=== PATIENT | female | born 1985 | race Caucasian/White ===

== ENCOUNTER 2017-12-31 08:13 | Emergency (ER) | payer MEDICAID ==
--- NOTE | 2017-12-31 08:32 | EDM.PDOC ---
ED HPI GENERAL MEDICAL PROBLEM - General Chief Complaint: Abdominal Pain Stated Complaint: BACK/ABDOMINAL PAIN Time Seen by Provider: 12/31/17 08:26 Source of Information: Reports: Patient History Limitations: Reports: No Limitations - History of Present Illness INITIAL COMMENTS - FREE TEXT/NARRATIVE: 32-year-old female presents the ED with diffuse left sided low back pain that seemed to come on abruptly after supper last evening. No position is comfortable. She states she spent a good portion of the night on her knees with her head lying on the couch.. Also associated feeling of need to void but unable to do so. She denies any pre-existing dysuria urgency or frequency. She told the nurse that she was having intermittent chills and fever but she does not have a fever at this time. Not eaten since yesterday. She has a family history of kidney stones but she was not moving the family had stones. She reports that her bowel function is quite poor in terms that she has very irregular hard constipated stools infrequently. She reports diffuse lower abdominal discomfort for the better part of a year. She reports she's had previous tubal ligation is her only abdominal surgery. Has never had similar type pain. No previous back surgery or injuries. Onset: Sudden Onset Date: 12/30/17 (Pain became much worse left mid lower back after supper last night. She reports she has chronic low back pain at any rate. This is the worst it's ever been.) Duration: Hour(s): Location: Reports: Back Quality: Reports: Ache, Sharp, Stabbing (Pain is constant with a colicky component.), Other Severity: Severe Improves with: Reports: None (No position is comfortable.) Worsens with: Reports: None Context: Denies: Activity, Exercise, Lifting, Sick Contact, Trauma, Other Associated Symptoms: Reports: Loss of Appetite, Malaise, Nausea/Vomiting. Denies: No Other Symptoms, Confusion, Chest Pain, Cough, cough w sputum, Diaphoresis, Fever/Chills, Headaches, Rash, Seizure, Shortness of Breath, Syncope, Weakness (Nausea without vomiting) Treatments MANAGER OF ORGANIZATIONAL DEVELOPMENT: Reports: Other (see below) (None.) Lower Abdominal Pain Score (Numeric/FACES): 7 - Related Data Allergies Allergy/AdvReac Type Severity Reaction Status Date / Time aspirin Allergy Hives Verified 12/31/17 08:20 azithromycin [From Zithromax] Allergy Vomiting Verified 12/31/17 08:20 nalbuphine [From Nubain] Allergy Headache Verified 12/31/17 08:20 Home Meds: Home Meds oxyCODONE HCl/Acetaminophen [Percocet 5-325 mg Tablet] 1 - 2 each PO Q4H PRN # 20 tablet 12/31/17 [Rx] predniSONE [Deltasone] 20 mg PO ASDIRECTED #15 tablet 12/31/17 [Rx] Past Medical History Gastrointestinal History: Reports: Chronic Constipation Musculoskeletal History: Reports: Other (See Below) Other Musculoskeletal History: septic arthritis; 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 Denies: Fever, Chills, Malaise, Weakness, Weight Loss HEENT: Reports: No Symptoms Respiratory: Reports: No Symptoms Cardiovascular: Reports: No Symptoms Endocrine: Reports: No Symptoms GI/Abdominal: Reports: Abdominal Pain (Chronic lower abdominal pain she reports for over a year and a half.), Constipation, Decreased Appetite : Reports: Other (Is a feeling of need to void but is often unable to do so.) Musculoskeletal: Reports: Back Pain Skin: Reports: No Symptoms (Diffuse left-sided low back pain but has chronic low back pain. Current pain is radiating down into her left buttock and posterior leg.) Neurological: Reports: No Symptoms Psychiatric: Reports: No Symptoms Hematologic/Lymphatic: Reports: No Symptoms Immunologic: Reports: No Symptoms ED EXAM, GI/ABD - Physical Exam Exam: See Below Exam Limited By: No Limitations General Appearance: Alert, WD/WN, Moderate Distress (No position is couple. She was examined in the standing position beside the bed.) Eyes: Bilateral: Normal Appearance (No jaundice.) Respiratory/Chest: No Respiratory Distress, Lungs Clear, Normal Breath Sounds, No Accessory Muscle Use Cardiovascular: Normal Peripheral Pulses, Regular Rate, Rhythm, No Edema, No Gallop, No Murmur, No Rub GI/Abdominal Exam: Normal Bowel Sounds, Soft, Non-Tender, No Organomegaly, No Abnormal Bruit, No Mass, Pelvis Stable Back Exam: Normal Inspection, Decreased Range of Motion, Muscle Spasm (Mild paraspinal muscle spasm on the left side with facet joint tenderness from lumbar 1 to L5 on the left side.). No: Full Range of Motion Extremities: Normal Inspection, Normal Range of Motion, Non-Tender, No Pedal Edema Neurological: Alert, Oriented, CN II-XII Intact, Normal Cognition Psychiatric: Normal Affect, Normal Mood Skin Exam: Warm, Dry, Intact, Normal Color, No Rash Course - Vital Signs Last Recorded V/S: Last Vital Signs Temp 36.4 C 12/31/17 08:21 Pulse 96 12/31/17 08:21 Resp BP 139/102 H 12/31/17 08:21 Pulse Ox 97 12/31/17 08:21 - Orders/Labs/Meds Orders: Active Orders 24 hr Category Date Time Status URINALYSIS W/MICROSCOPIC [UA W/MICROSCOPIC] [URIN] Stat Lab 12/31/17 08:40 Ordered Dextrose 5%-0.9% NaCl [Dextrose 5%-Normal Saline] 1,000 Med 12/31/17 08:45 Active ml IV ASDIRECTED Medication Orders Dextrose/Sodium Chloride (Dextrose 5%-Normal Saline) 1,000 mls @ 150 mls/hr IV ASDIRECTED ADAMS Last Admin: 12/31/17 08:51 Dose: 150 mls/hr Labs: Laboratory Tests 12/31/17 12/31/17 12/31/17 Range/Units 08:23 08:23 08:40 WBC 6.18 (3.98-10.04) K/mm3 RBC 4.92 (3.98-5.22) M/mm3 Hgb 14.1 (11.2-15.7) gm/L Hct 43.1 (34.1-44.9) % MCV 87.6 (79.4-94.8) fl MCH 28.7 (25.6-32.2) pg MCHC 32.7 (32.2-35.5) g/dl RDW Std Deviation 45.0 (36.4-46.3) fL Plt Count 273 (182-369) K/mm3 MPV 11.7 (9.4-12.3) fl Neutrophils % (Manual) 33 L (40-60) % Band Neutrophils % 1 (0-10) % Lymphocytes % (Manual) 61 H (20-40) % Atypical Lymphs % 0 % Monocytes % (Manual) 4 (2-10) % Eosinophils % (Manual) 1 (0.7-5.8) % Basophils % (Manual) 0 L (0.1-1.2) Platelet Estimate Adequate RBC Morph Comment Normal Sodium 139 (136-145) mEq/L Potassium 4.5 (3.5-5.1) mEq/L Chloride 106 (98-107) mEq/L Carbon Dioxide 25 (21-32) mEq/L Anion Gap 12.5 (5-15) BUN 10 (7-18) mg/dL Creatinine 1.0 (0.55-1.02) mg/dL Est Cr Clr Drug Dosing 74.91 mL/min Estimated GFR (MDRD) > 60 (>60) mL/min BUN/Creatinine Ratio 10.0 L (14-18) Glucose 97 (74-106) mg/dL Calcium 9.3 (8.5-10.1) mg/dL Total Bilirubin 0.4 (0.2-1.0) mg/dL AST 19 (15-37) U/L ALT 35 (14-59) U/L Alkaline Phosphatase 104 (46-116) U/L C-Reactive Protein 0.3 (<1.0) mg/dL Total Protein 8.2 (6.4-8.2) g/dl Albumin 4.2 (3.4-5.0) g/dl Globulin 4.0 gm/dL Albumin/Globulin Ratio 1.1 (1-2) Urine Color Yellow (Yellow) Urine Appearance Clear (Clear) Urine pH 6.0 (5.0-8.0) Ur Specific Stebbins > or = 1.030 (1.005-1.030) Urine Protein Trace H (Negative) Urine Glucose (UA) Negative (Negative) Urine Ketones Negative (Negative) Urine Occult Blood Negative (Negative) Urine Nitrite Negative (Negative) Urine Bilirubin Negative (Negative) Urine Urobilinogen 0.2 (0.2-1.0) Ur Leukocyte Esterase Negative (Negative) Urine RBC Not seen (0-5) /hpf Urine WBC 0-5 (0-5) /hpf Ur Epithelial Cells 0-5 (0-5) /hpf Urine Bacteria Few (FEW) /hpf Urine Mucus Few (FEW) /hpf Meds: Medications Generic Name Dose Route Start Last Admin Trade Name Fregrace PRN Reason Stop Dose Admin Dextrose/Sodium Chloride 1,000 mls @ 150 mls/hr 12/31/17 08:45 12/31/17 08:51 Dextrose 5%-Normal Saline IV 150 mls/hr ASDIRECTED ADAMS Administration Discontinued Medications Generic Name Dose Route Start Last Admin Trade Name Freq PRN Reason Stop Dose Admin Hydromorphone HCl 1 mg 12/31/17 08:33 12/31/17 08:49 Dilaudid IVPUSH 12/31/17 08:34 1 mg ONETIME ONE Administration Magnesium Citrate 240 ml 12/31/17 10:03 12/31/17 10:12 Citrate Of Magnesia PO 12/31/17 10:04 240 ml ONETIME ONE Administration Metoclopramide HCl 7.5 mg 12/31/17 08:33 12/31/17 08:48 Reglan IVPUSH 12/31/17 08:34 7.5 mg ONETIME ONE Administration - Radiology Interpretation Free Text/Narrative:: 32-year-old female presents to the ED with diffuse left lower back pain. She states it became suddenly worse last evening after supper. No falls or recent injuries. States the pain is constant with a strong colicky component with associated feeling of need to void but unable to do so at times. Noticed the urine is darker jennifer in color. No jez blood per urethra. She has never experienced this type of pain before although she has chronic diffuse low back pain. She reports pain does seem to radiate into her left buttock and posterior thigh at times. Associated nausea without any vomiting. And up all night because of the severity of the pain. She's been primarily kneeling on the floor with her head on the couch. Her history is somewhat suggestive of renal colic although not completely so. She is minimal spur paraspinal muscle tenderness on examination of her left lower back. Benign abdominal examination. Patient has had a previous tubal ligation. Workup will be centered around possible left renal colic. Plan IV: D5 normal saline at 150 mils per hour. Given Dilaudid 1 mg IV for pain relief and Reglan 7.5 mg IV for nausea relief. Skin the abdomen and pelvis was performed without any contrast. Urinalysis will be performed when one becomes available. - Re-Assessments/Exams Free Text/Narrative Re-Assessment/Exam: 12/31/17 09:18 CT of the abdomen and pelvis has been completed. Liver spleen and gallbladder. Normal pancreas appears normal. Kidneys both appear normal with no signs of stones within the kidney tissues and no obstructing uropathy. There is a large amount of stool throughout the entire colon. No evidence of diverticulitis. No mesenteric adenitis noted. Able to visualize most of the lower thoracic spine and lumbar spine and no abnormality is appreciated as far as degenerative disc disease fractures or abnormalities of the vertebra. Will await lab reports and urinalysis. 12/31/17 09:57 Labs are back. White count is normal at 6.18 differential pending hemoglobin 14.1 with hematocrit of 43.1. Count normal 273,000. Chemistry is completely normal. CRP was less than 0.3. Renal. Urinalysis shows no signs of infection. 12/31/17 10:03 patient's pain is markedly improved after IV analgesia. Plan most her pain does appear to be coming from her lower back. She does take Advil and or Motrin without issue. She's allergic to aspirin with develop hives as a teenager. Therefore she will continue Motrin 600 mg every 6 hours needed to reduce pain and inflammation. Percocet tabs 5/325 one or 2 every 4-6 hours for pain relief for the next few days until inflammation settles down. We'll place on a short course of prednisone 20 mg twice a day for 5 days then once in the morning only for another 5 days to further reduce inflammation in her back. Regards to her constipation issues suggest Citroma 8 ounces by mouth next to 6 ounces of juice of choice taken once. Then she is to stay on her MiraLAX powder 17 g or 1 scoop daily to keep the bowels much more regular. I believe this cause of her colicky type abdominal pain. She will follow-up with her personal care provider if any further problems occur. Departure - Departure Time of Disposition: 10:06 Disposition: Home, Self-Care 01 Condition: Fair Clinical Impression: Acute exacerbation of chronic low back pain, Constipation by delayed colonic transit - Discharge Information Prescriptions: oxyCODONE HCl/Acetaminophen [Percocet 5-325 mg Tablet] 1 - 2 each PO Q4H PRN # 20 tablet PRN Reason: pain relief. predniSONE [Deltasone] 20 mg PO ASDIRECTED #15 tablet Instructions: Constipation, Adult, Chronic Back Pain Referrals: PCP,None [Primary Care Provider] - Forms: ED Department Discharge Additional Instructions: Evaluation the emergency room this morning in regards to severe left-sided low back pain that started last evening suddenly. You had many of the signs and symptoms of renal colic (kidney stone) however urinalysis proved to be negative and lab work also was negative for any signs of infection. CT scan of the abdomen /pelvis was performed. He reveals a normal liver and gallbladder pancreas and spleen. The colon is completely filled with stool from right to left side compatible with chronic constipation problems. Uterus and ovaries were all normal. Therefore the problem does appear to be coming from your lower back primarily. Treatment is to continue Advil 600 mg every 6 hours to reduce pain and inflammation. In addition use Deltasone 20 mg with breakfast and supper for 5 days and 1 tablet in the morning only for another 5 days to reduce inflammation. This should also help substantially with pain over the next 2-3 days. Percocet tabs 5/3/25 milligrams strength one or 2 every 4-6 hours needed for pain relief over the next few days until the anti-inflammatories become effectual. To the constipation I would strongly suggest Citroma 8 ounces by mouth daily mixed with 6 ounces of juice of choice taken by mouth once. This will take anywhere from 1-4 hours to start to work in your bowels on average work 3 or 4 times sometimes ending and diarrhea. After this I would suggest MiraLAX powder 17 g or 1 scoop daily to provide a bowel movement at least every second day to prevent constipation issues. Expect gradual improvement in regards to your back pain over the next week. Follow-up with personal care physician if any further problems occur. - My Orders Last 24 Hours: My Active Orders 12/31/17 08:40 URINALYSIS W/MICROSCOPIC [UA W/MICROSCOPIC] [URIN] Stat 12/31/17 08:45 Dextrose 5%-0.9% NaCl [Dextrose 5%-Normal Saline] 1,000 ml IV ASDIRECTED - Assessment/Plan Last 24 Hours: My Active Orders 12/31/17 08:40 URINALYSIS W/MICROSCOPIC [UA W/MICROSCOPIC] [URIN] Stat 12/31/17 08:45 Dextrose 5%-0.9% NaCl [Dextrose 5%-Normal Saline] 1,000 ml IV ASDIRECTED
[2017-12-31] MEDS ORDERED: Metoclopramide 10 MG/2 ML SDV IVPUSH ONE (08:33)
[2017-12-31] MEDS ORDERED: HYDROmorphone 0.5 MG/0.5 ML SYRINGE IVPUSH ONE (08:33)
[2017-12-31] MEDS ORDERED: Dextrose 5%-0.9% NaCl 1,000 ML IV SCH (08:45)
--- NOTE | 2017-12-31 09:40 | CT ---
CT abdomen and pelvis Technique: Multiple axial sections were obtained from above the dome of the diaphragm inferiorly through the pubic symphysis. Intravenous and oral contrast has not been utilized. Study has been performed as a ureteral stone protocol. Comparison: No prior abdominal imaging. Findings: Kidneys show no abnormal calcifications. No ureteral dilatation or ureteral stone is seen. Calcified granuloma noted within the left lung base. Noncontrast appearance of the liver and spleen appear within normal limits. Gallbladder contains no calcified gallstones. Adrenal glands show no nodule. Pancreas is within normal limits. Aorta shows no aneurysmal dilatation. No retroperitoneal adenopathy or mesenteric abnormalities are seen. Appendix is seen which is normal in size. No pelvic mass or adenopathy is seen. No free fluid or inflammatory change is seen. Bone window settings were reviewed which shows spondylolytic defects at L5-S1. Small fat-containing umbilical hernia is incidentally noted. Impression: 1. No renal calculi, ureteral dilatation or ureteral stone is seen. 2. Spondylolytic defects at L5-S1. Incidental small fat-containing umbilical hernia. 3. Calcified granuloma within the left lung base. 4. No additional abnormality is identified on noncontrast CT study of the abdomen and pelvis. Diagnostic code #2
[2017-12-31] MEDS ORDERED: Magnesium Citrate Solution 296 ML Bottle PO ONE (10:03)
== END 2017-12-31 10:17 | disposition home or self-care (01) ==
LOC: JD.ED 08:13
DX: M54.5 Low back pain (principal); G89.29 Other chronic pain; K59.01 Slow transit constipation; F17.210 Nicotine dependence, cigarettes, uncomplicated; Z88.6 Allergy status to analgesic agent; Z88.1 Allergy status to other antibiotic agents; Z88.8 Allergy status to other drugs, medicaments and biological substances
CPT/HCPCS: 36415; 74176; 80053; 81001; 85025; 86140; 96361; 96374; 96375; 99284; A9270; J1170; J2765; J7042